=== PATIENT | male | born 1970 | race Two or more races ===

== ENCOUNTER 2016-09-11 22:30 | Emergency (ER) | payer MEDICAID | END 2016-09-12 | disposition left against medical advice (07) | LOC: ER 22:31 | DX: Z53.21 Procedure and treatment not carried out due to patient leaving prior to being seen by health care provider (principal) ==

== ENCOUNTER 2016-12-28 18:19 | Emergency (ER) | payer MEDICAID ==
[~2016-12-28] VITALS: Ht 177.8 cm; Wt 83.9 kg
[2016-12-28 19:36] VITALS: BP 136/98
== END 2016-12-28 19:37 | disposition home or self-care (01) ==
LOC: ER 18:21
DX: S22.089A Unspecified fracture of T11-T12 vertebra, initial encounter for closed fracture (principal); M54.5 Low back pain; F20.9 Schizophrenia, unspecified; J45.909 Unspecified asthma, uncomplicated; F31.9 Bipolar disorder, unspecified; G89.29 Other chronic pain; W01.0XXA Fall on same level from slipping, tripping and stumbling without subsequent striking against object, initial encounter; Y93.89 Activity, other specified; Y92.89 Other specified places as the place of occurrence of the external cause; Y99.9 Unspecified external cause status
CPT/HCPCS: 72100-TC; A4606; Z7610

== ENCOUNTER 2017-09-28 07:22 | Emergency (ER) | payer MEDICAID ==
[~2017-09-28] VITALS: Ht 180.3 cm; Wt 81.6 kg
[2017-09-28 07:28] VITALS: BP 135/76
[2017-09-28] MEDS ORDERED: ALPRAZOLAM 0.5 MG TABLET PO ONE (08:30)
[2017-09-28] MEDS ORDERED: ALPRAZOLAM 0.5 MG TABLET ONE (08:36)
== END 2017-09-28 08:45 | disposition home or self-care (01) ==
LOC: ER 07:23
DX: Z76.0 Encounter for issue of repeat prescription (principal); F41.9 Anxiety disorder, unspecified; J45.909 Unspecified asthma, uncomplicated; F31.9 Bipolar disorder, unspecified; F20.9 Schizophrenia, unspecified
CPT/HCPCS: A4606; Z7610